=== PATIENT | male | born 1950 | race African-American/Black ===

== ENCOUNTER 2018-06-06 17:04 | Emergency (ER) | payer OTHER ==
[~2018-06-06] VITALS: Ht 200.7 cm; Wt 80.0 kg
--- NOTE | 2018-06-06 17:19 | NUR ---
PT TO ED VIA EMS FOR SYNCOPAL EPISODE X2. CONNECTED TO ALL MONITORS. VSS. BP 70/40 ON SCENE. BP 135/72 UPON ARRIVAL. MD TO BEDSIDE FOR ASSESSMENT. ORDERS RECEIVED. LAB AT BEDSIDE. ALL SYPMTOMS HAVE RESOLVED AT THIS TIME. FAMILY AT BEDSIDE. CALL LIGHT WITHIN REACH. NO NEEDS AT THIS TIME.
[2018-06-06 17:30] LABS: BASOPHILS # (AUTO) 0.03 x10^3/uL (0-0.1); BASOPHILS % (AUTO) 0 % (0-1); EOSINOPHILS # (AUTO) 0.19 x10^3/uL (0-0.4); EOSINOPHILS % (AUTO) 2 % (1-7); LYMPHOCYTES # (AUTO) 3.57 x10^3/uL (1-3.4); LYMPHOCYTES % (AUTO) 31 % (22-44); MD NO; MEAN CORPUSCULAR HEMOGLOBIN 31.3 pg (27.5-34.5); MEAN CORPUSCULAR HGB CONC 33.7 g/dL (33.2-36.2); MEAN CORPUSCULAR VOLUME 92.9 fL (81-97); MEAN PLATELET VOLUME 7.1 fL (7.4-10.4); MONOCYTES # (AUTO) 0.82 x10^3/uL (0.2-0.8); MONOCYTES % (AUTO) 7 % (2-9); NEUTROPHILS % (AUTO) 61 % (42-75); PLATELET COUNT 294 x10^3/uL (130-400); RED BLOOD COUNT 4.56 x10^6/uL (4.38-5.82); RED CELL DISTRIBUTION WIDTH 15.5 % (9.4-14.8)
[2018-06-06 17:32] VITALS: BP 137/82
[2018-06-06 17:40] LABS: ALBUMIN 4.4 g/dL (3.4-5.0); ANION GAP 11 mmol/L (5-15); CALCIUM 8.7 mg/dL (8.5-10.1); CHLORIDE 103 mmol/L (98-107); CREATININE 1.76 mg/dL (0.7-1.3)
[2018-06-06 17:43] LABS: TROPONIN I < 0.015 ng/mL (0.000-0.045)
--- NOTE | 2018-06-06 18:05 | NUR ---
ALL RESULTS BACK AT THIS TIME. CHART UP FOR RECHECK.
== END 2018-06-06 18:55 | disposition home or self-care (01) ==
LOC: ED 18:49
DX: N28.9 Disorder of kidney and ureter, unspecified (principal); R55 Syncope and collapse; I10 Essential (primary) hypertension
CPT/HCPCS: 36415; 80048; 82040; 84484; 85025; 93005; 99284